=== PATIENT | female | born 1955 | race Caucasian/White ===

== ENCOUNTER 2016-09-13 09:30 | Emergency (ER) | payer BC ==
[2016-09-13 12:44] LABS: Hematocrit 45 % (35-47); Hemoglobin 15.2 g/dl (12.0-16.0); Mean Corpuscular HGB Conc 34 g/dl (31-36); Mean Corpuscular Hemoglobin 31 pg (27-31); Mean Corpuscular Volume 92 fL (80-97); Mean Platelet Volume 8 um3 (7.4-10.4); Red Blood Count 4.93 10^6/ul (4.0-5.4); Red Cell Distribution Width 13 % (10.5-15); White Blood Count 9.1 10^3/ul (3.5-10.8)
[2016-09-13 12:51] LABS: Urine Bacteria Absent (Absent); Urine Bilirubin Negative (Negative); Urine Glucose Negative (Negative); Urine Nitrite Negative (Negative)
[2016-09-13 13:05] LABS: Troponin I 0.01 ng/mL (<0.04)
[2016-09-13 13:26] LABS: ALT 13 U/L (7-52); AST 22 U/L (13-39); Albumin 4.7 g/dL (3.2-5.2); Alkaline Phosphatase 60 U/L (34-104); Anion Gap 11 mmol/L (2-11); Blood Urea Nitrogen 12 mg/dL (6-24); C Reactive Protein < 1.00 mg/L (< 5.00); CO2 Carbon Dioxide 25 mmol/L (22-32); Calcium 9.8 mg/dL (8.6-10.3); Chloride 101 mmol/L (101-111); Creatine Kinase 76 U/L (10-223); EGFR African American 100.4 (>60); Globulin 2.7 g/dL (2-4); Glucose 81 mg/dL (70-100); Lipase 49 U/L (11.0-82.0); Magnesium 2.4 mg/dL (1.9-2.7); Potassium 3.6 mmol/L (3.5-5.0); Sodium 137 mmol/L (133-145); Total Protein 7.4 g/dL (6.4-8.9)
[2016-09-13 13:35] LABS: Erythrocyte Sed Rate 10 mm/Hr (0-30)
[2016-09-13 13:37] LABS: TSH (Thyroid Stimulating Horm) 1.27 mcIU/mL (0.34-5.60)
--- NOTE | 2016-09-13 15:32 | CONSULT ---
Consult Consult: 09/13/16 neurology consult 61 yo RHF p/w 10 days of variegated bilateral non painful muscle twitches, petrona oral and limb tingling without ezequiel pain or sensory loss, subjective weakness ( no functional limitations, working). She has no atrophy, visual, hearing, cognitive, bulbar or bowel or bladder issues. She has no rash, constitutional symptoms, recent illnesses; she wonders re occupational exposure, npting that while she does not work with any chemicals, some are stored nearby. She saw her PMS, was put on Lexapro after endorsing some anxiety, took one dose and had some diarrhea. She saw Dr Banuelos 5 years ago, but for resolved vertigo, not this symptom complex. She had similar symptoms 12 years ago. She brings records from a Dr Adela Mitchell in [place], [place], noting diffuse dysesthesias, lip tingling, muscle twitches, fatigue. She was symptomatically treated with Xanax, Neurontin, ssri; she suggests taking these for several years without clear effect, then her symptoms resolved. She had an extensive negative workup as below. Allergies/Meds per aug PMH allergic rhinitis, BTL, parotid gland surg (benign) FH mother alive healthy; F of hemorrhagic stroke, had RA SH no etoh or drugs; remote tobacco; works in factory ROS 10 point review as per hpi , otherwise negative general Examination: no apparent distress, no edema, female of stated age; VS per emr Neurologic Examination Mental Status: alert and oriented; affect reactive, no clear neglect, fluent speech Cranial Nerves: Funduscopy shoes sharp dsics; II-XII intact; milligan full to confrontation Motor: normal bulk, tone and power; no drift or tremor Sensory: vibration and touch are intact Reflexes: 2 throughout symmetrically. Plantar responses are equivocal to flexor Coordination: finger to nose is accurate Gait: normal casual gait; narrow base; Romberg negative; normal heel and toe walking Acute workup: Serologies: CBC, chem, LFT, ESR, coags, cpk, crp, trop, tsh, NH3 are all normal or negative; B12 pending Imaging: None locally 2003 workup per records: 10/21 brain mri negative 10/21 ncs/emg BLE neg 02/21 Ct abd and pelvis neg; 11/21 cxr neg 02/21 mammogram neg Labs tsh, anti Hu, Ro/La, ESR, RF, PEYTON, ANCA, 2hr GTT, B12, RODERICK were all nl/neg Impression: 61 yo RHF p/w 10 days of variegated bilateral non painful muscle twitches, petrona oral and limb tingling. Her neuro exam and toxic metabolic workup is negative; she is being treated for possible anxiety with an SSRI. She had similar and symptomatically treated symptoms 12 years ago, with no unifying neuro diagnosis or ill effect, and negative extensive workup as above. She has no clear neuro diagnosis currently either, and no functional limitations; she can be discharged from the ED; I have no issue with her trialing low dose SSRI. She might make an appointment with [facility] in case of symptom worsening or persistence.
--- NOTE | 2016-09-13 15:44 | ED ---
Jemima Balderas Matthew, scribed for Karlos Lozano MD on 09/13/16 at 1229 . Neurological HPI - HPI Summary HPI Summary: A 61 y/o female presents to the ED for muscle twitching since 10 days ago. The twitching started in her thumb and has begun to worsen. The twitching is now diffuse throughout her body. Occasionally the twitching is described as a sensation of movement that does not result in movement. Associated symptoms include bilateral leg weakness. The patient denies recent illness and numbness/ tingling. She has full ROM of her extremities. 12 years ago the patient was in [place] and presented to the ED for similar symptoms. The symptoms lasted for 2 years than went away for 8 years before returning 10 days ago. She recently went to her PCP and was prescribed an anti-depressant, but wants another opinion before starting the medication. Hx of red devil disease 3 years ago - History of Current Complaint Chief Complaint: EDGeneral Stated Complaint: WEAKNESS/TICKS Time Seen by Provider: 09/13/16 10:51 Hx Obtained From: Patient - Allergy/Home Medications Allergies/Adverse Reactions: Allergies Allergy/AdvReac Type Severity Reaction Status Date / Time No Known Allergies Allergy Verified 02/08/16 10:32 Home Medications: Home Medications Aspirin Low Dose CHEW TAB* [Aspirin Low Dose TAB*] 81 mg PO EVERY OTHER DAY [History Confirmed 09/13/16] Cholecalciferol [Vitamin D] 1,000 unit PO DAILY 09/13/16 [History Confirmed ] Cranberry (Vaccinium Macrocarp [Cranberry] 300 mg PO EVERY OTHER DAY 09/13/16 [ History Confirmed 09/13/16] Escitalopram (NF) [Lexapro (NF)] 10 mg PO DAILY 09/13/16 [History Confirmed ] Flaxseed (Linseed) [Flaxseed Oil] 1,000 mg PO DAILY 09/13/16 [History Confirmed 09/13/16] Magnesium 250 mg PO DAILY 09/13/16 [History Confirmed 09/13/16] Multivitamins/Minerals TAB* [Theragran/minerals TAB*] 1 tab PO DAILY 09/13/16 [ History Confirmed 09/13/16] Potassium Gluconate [Potassium Gluconate ER] 595 mg PO DAILY 09/13/16 [History Confirmed 09/13/16] PMH/Surg Hx/FS Hx/Imm Hx Cardiovascular History: Denies: Hx Hypertension Psychiatric History: Reports: Hx Depression - Possible - Surgical History Surgery Procedure, Year, and Place: perodid gland ectomy, tubal ligation Infectious Disease History: No Infectious Disease History: Reports: Hx Shingles Denies: Hx Clostridium Difficile, Hx Hepatitis, Hx Human Immunodeficiency Virus (HIV), Hx of Known/Suspected MRSA, Hx Tuberculosis, Hx Known/Suspected VRE , Hx Known/Suspected VRSA, History Other Infectious Disease, Traveled Outside the [place] in Last 30 Days - Family History Known Family History: Positive: Hypertension - Social History Alcohol Use: None Substance Use Type: Reports: None Smoking Status (MU): Never Smoked Tobacco Review of Systems Constitutional: Negative Eyes: Negative ENT: Negative Cardiovascular: Negative Respiratory: Negative Gastrointestinal: Negative Genitourinary: Negative Musculoskeletal: Negative Skin: Negative Neurological: Other - Diffuse muscle twitching Positive: Weakness - bilateral leg weakness. Negative: Numbness Psychological: Normal All Other Systems Reviewed And Are Negative: Yes Physical Exam Triage Information Reviewed: Yes Vital Signs On Initial Exam: Initial Vitals Temp Pulse Resp BP Pulse Ox 97.4 F 88 18 139/78 100 09/13/16 09:35 09/13/16 09:35 09/13/16 09:35 09/13/16 09:35 09/13/16 09:35 Vital Signs Reviewed: Yes Appearance: Positive: Well-Appearing, No Pain Distress Skin: Positive: Warm, Dry Eyes: Positive: EOMI, MAYE ENT: Positive: Normal ENT inspection Neck: Positive: Supple, Nontender Respiratory/Lung Sounds: Positive: Clear to Auscultation, Breath Sounds Present Cardiovascular: Positive: RRR Abdomen Description: Positive: Nontender, Soft Bowel Sounds: Positive: Present Musculoskeletal: Positive: Strength/ROM Intact Neurological: Positive: Alert, Oriented to Person Place, Time Psychiatric: Positive: Affect/Mood Appropriate Diagnostics - Vital Signs Vital Signs Temp Pulse Resp BP Pulse Ox 09/13/16 09:35 97.4 F 88 18 139/78 100 - Laboratory Lab Results: Lab Results 09/13/16 09/13/16 09/13/16 Range/Units 11:39 12:30 12:30 WBC 9.1 (3.5-10.8) 10^3/ul RBC 4.93 (4.0-5.4) 10^6/ul Hgb 15.2 (12.0-16.0) g/dl Hct 45 (35-47) % MCV 92 (80-97) fL MCH 31 (27-31) pg MCHC 34 (31-36) g/dl RDW 13 (10.5-15) % Plt Count 271 (150-450) 10^3/ul MPV 8 (7.4-10.4) um3 Neut % (Auto) 73.6 (38-83) % Lymph % (Auto) 14.9 L (25-47) % [place] % (Auto) 9.5 H (1-9) % Eos % (Auto) 0.6 (0-6) % Baso % (Auto) 1.4 (0-2) % Absolute Neuts (auto) 6.7 (1.5-7.7) 10^3/ul Absolute Lymphs (auto) 1.3 (1.0-4.8) 10^3/ul Absolute Monos (auto) 0.9 H (0-0.8) 10^3/ul Absolute Eos (auto) 0.1 (0-0.6) 10^3/ul Absolute Basos (auto) 0.1 (0-0.2) 10^3/ul Absolute Nucleated RBC 0 10^3/ul Nucleated RBC % 0 ESR 10 (0-30) mm/Hr INR (Anticoag Therapy) 1.02 (0.89-1.11) APTT 28.3 (26.0-36.3) seconds Sodium (133-145) mmol/L Potassium (3.5-5.0) mmol/L Chloride (101-111) mmol/L Carbon Dioxide (22-32) mmol/L Anion Gap (2-11) mmol/L BUN (6-24) mg/dL Creatinine (0.51-0.95) mg/dL Est GFR ( Amer) (>60) Est GFR (Non-Af Amer) (>60) BUN/Creatinine Ratio (8-20) Glucose (70-100) mg/dL Calcium (8.6-10.3) mg/dL Magnesium (1.9-2.7) mg/dL Total Bilirubin (0.2-1.0) mg/dL AST (13-39) U/L ALT (7-52) U/L Alkaline Phosphatase (34-104) U/L Ammonia (16-53) mol/L Total Creatine Kinase (10-223) U/L CK-MB (CK-2) (0.6-6.3) ng/mL Troponin I (<0.04) ng/mL C-Reactive Protein (< 5.00) mg/L Total Protein (6.4-8.9) g/dL Albumin (3.2-5.2) g/dL Globulin (2-4) g/dL Albumin/Globulin Ratio (1-3) Lipase (11.0-82.0) U/L Vitamin B12 TSH (0.34-5.60) mcIU/mL Urine Color Yellow Urine Appearance Clear Urine pH 5.0 (5-9) Ur Specific [place] 1.006 L (1.010-1.030) Urine Protein Negative (Negative) Urine Ketones 1+ H (Negative) Urine Blood Negative (Negative) Urine Nitrate Negative (Negative) Urine Bilirubin Negative (Negative) Urine Urobilinogen Negative (Negative) Ur Leukocyte Esterase 1+ H (Negative) Urine WBC (Auto) Trace(0-5/hpf) (Absent) Urine RBC (Auto) Trace(0-2/hpf) (Absent) Ur Squamous Epith Cells Present H (Absent) Urine Bacteria Absent (Absent) Hyaline Casts Present H (Absent) Urine Glucose Negative (Negative) 09/13/16 09/13/16 Range/Units 12:30 14:45 WBC (3.5-10.8) 10^3/ul RBC (4.0-5.4) 10^6/ul Hgb (12.0-16.0) g/dl Hct (35-47) % MCV (80-97) fL MCH (27-31) pg MCHC (31-36) g/dl RDW (10.5-15) % Plt Count (150-450) 10^3/ul MPV (7.4-10.4) um3 Neut % (Auto) (38-83) % Lymph % (Auto) (25-47) % [place] % (Auto) (1-9) % Eos % (Auto) (0-6) % Baso % (Auto) (0-2) % Absolute Neuts (auto) (1.5-7.7) 10^3/ul Absolute Lymphs (auto) (1.0-4.8) 10^3/ul Absolute Monos (auto) (0-0.8) 10^3/ul Absolute Eos (auto) (0-0.6) 10^3/ul Absolute Basos (auto) (0-0.2) 10^3/ul Absolute Nucleated RBC 10^3/ul Nucleated RBC % ESR (0-30) mm/Hr INR (Anticoag Therapy) (0.89-1.11) APTT (26.0-36.3) seconds Sodium 137 (133-145) mmol/L Potassium 3.6 (3.5-5.0) mmol/L Chloride 101 (101-111) mmol/L Carbon Dioxide 25 (22-32) mmol/L Anion Gap 11 (2-11) mmol/L BUN 12 (6-24) mg/dL Creatinine 0.75 (0.51-0.95) mg/dL Est GFR ( Amer) 100.4 (>60) Est GFR (Non-Af Amer) 78.0 (>60) BUN/Creatinine Ratio 16.0 (8-20) Glucose 81 (70-100) mg/dL Calcium 9.8 (8.6-10.3) mg/dL Magnesium 2.4 (1.9-2.7) mg/dL Total Bilirubin 0.80 (0.2-1.0) mg/dL AST 22 (13-39) U/L ALT 13 (7-52) U/L Alkaline Phosphatase 60 (34-104) U/L Ammonia 33 (16-53) mol/L Total Creatine Kinase 76 (10-223) U/L CK-MB (CK-2) 3.0 (0.6-6.3) ng/mL Troponin I 0.01 (<0.04) ng/mL C-Reactive Protein < 1.00 (< 5.00) mg/L Total Protein 7.4 (6.4-8.9) g/dL Albumin 4.7 (3.2-5.2) g/dL Globulin 2.7 (2-4) g/dL Albumin/Globulin Ratio 1.7 (1-3) Lipase 49 (11.0-82.0) U/L Vitamin B12 Pending TSH 1.27 (0.34-5.60) mcIU/mL Urine Color Urine Appearance Urine pH (5-9) Ur Specific [place] (1.010-1.030) Urine Protein (Negative) Urine Ketones (Negative) Urine Blood (Negative) Urine Nitrate (Negative) Urine Bilirubin (Negative) Urine Urobilinogen (Negative) Ur Leukocyte Esterase (Negative) Urine WBC (Auto) (Absent) Urine RBC (Auto) (Absent) Ur Squamous Epith Cells (Absent) Urine Bacteria (Absent) Hyaline Casts (Absent) Urine Glucose (Negative) Result Diagrams: 09/13/16 12:30 09/13/16 12:30 Lab Statement: Any lab studies that have been ordered have been reviewed, and results considered in the medical decision making process. Course/Dx - Course Assessment/Plan: DR GEIGER, NEUROLOGY, SAW PATIENT IN ED. DID NOT RECOMMEND ANY IMAGING. DISCHARGE HOME STABLE. - Diagnoses Provider Diagnoses: Dysesthesia - Physician Notifications Discussed Care of Patient With: Dr. Hickman (Neurology) at 13:06 -- Notified of patient's history and will come to evaluate the patient. Discharge - Discharge Plan Condition: Stable Disposition: HOME Referrals: [facility] [Provider Group] Moriah Saunders MD [Primary Care Provider] - Fidelia Banuelos MD [Medical Doctor] - Additional Instructions: FOLLOW UP WITH YOUR DOCTOR FOR YOUR SYMPTOMS. RETURN TO THE EMERGENCY DEPARTMENT FOR ANY WORSENING OF YOUR CONDITION OR QUESTIONS OR CONCERNS. The documentation as recorded by the Jemima trejo Matthew accurately reflects the service I personally performed and the decisions made by me, Karlos Lozano MD.
[2016-09-13 16:00] VITALS: BP 135/56
[2016-09-13 16:42] LABS: Vitamin B12 1128 pg/mL (180-914)
== END 2016-09-13 15:58 | disposition home or self-care (01) ==
LOC: ED 09:30
DX: R20.8 Other disturbances of skin sensation (principal)
CPT/HCPCS: 36415; 80053; 81003; 81015; 82140; 82550; 82553; 82607; 83690; 83735; 84443; 84484; 85025; 85610; 85652; 85730; 86140; 87086; 99283